=== PATIENT | male | born 1950 | race Caucasian/White ===

== ENCOUNTER → 2017-10-27 | Outpatient (CLI) | payer OTHER ==
[~2017-10-27] MED LIST: ATOR-22 PO; MISCCAP80 PO; MULT-506 PO; OMEG10007 PO; OMEP40CA PO; RANI300T2 PO
--- NOTE | 2017-10-27 13:48 | DIAGNOSTIC IMAGING REPORT ---
RETROPERITONEAL COMPLETE CLINICAL HISTORY: [id number] SYNDROME renal insufficiency TECHNIQUE: Ultrasound COMPARISON STUDY: None FINDINGS: Right kidney measures 11.6 cm. Left kidney measures 11.7 cm. No evidence for hydronephrosis. Cortical and medullary echogenicity are unremarkable. There is a 1.4 cm right renal cyst. IMPRESSION: Small right renal cyst. Otherwise normal exam. The above report was generated using voice recognition software. It may contain grammatical, syntax or spelling errors. Electronically signed by: Samuel Sauer M.D. 10/27/2017 1:47 PM Dictated Date/Time: 10/27/2017 1:44 PM
== END | disposition home or self-care (01) ==
LOC: C.ULTR 13:21
PROVIDERS: ATTEND Family Medicine
DX: Q87.89 Other specified congenital malformation syndromes, not elsewhere classified (principal)